=== PATIENT | female | born 1950 | race Caucasian/White ===

== ENCOUNTER 2019-05-19 10:47 | Outpatient (CLI) | payer MEDICARE ==
--- NOTE | 2019-05-19 11:22 | RAD ---
EXAM: XR Lumbar Spine 2 Or 3 View PROVIDED CLINICAL HISTORY: Back pain COMPARISON: None FINDINGS: 5 nonrib-bearing lumbar-type vertebral bodies are present. Neutral lateral, flexion lateral and exten chino lateral radiographs of the lumbar spine performed. There is grade 1 anterolisthesis of L3 on L4 and L4 on L5. There is no evidence for abnormal translational motion with flexion and extension. M ultilevel disc and facet degenerative changes are seen. Vertebral body heights appear preserved. IMPRESSION: As above.
== END 2019-05-19 10:48 | disposition home or self-care (01) ==
LOC: RAD 10:47
PROVIDERS: ATTEND Nurse Practitioner Family
DX: M99.83 Other biomechanical lesions of lumbar region (principal); M47.816 Spondylosis without myelopathy or radiculopathy, lumbar region; M43.16 Spondylolisthesis, lumbar region
CPT/HCPCS: 72100

== ENCOUNTER 2021-04-03 11:56 | Outpatient (CLI) | payer MEDICARE | END 2021-04-03 11:57 | disposition home or self-care (01) | LOC: BICMRI 11:56 | PROVIDERS: ATTEND Nurse Practitioner Family | DX: M48.061 Spinal stenosis, lumbar region without neurogenic claudication (principal); M51.36 Other intervertebral disc degeneration, lumbar region; M48.07 Spinal stenosis, lumbosacral region | CPT/HCPCS: 72148 ==